=== PATIENT | male | born 1990 | race Caucasian/White ===

== ENCOUNTER 2017-01-16 11:50 | Emergency (ER) | payer SELFPAY ==
[~2017-01-16] VITALS: Ht 177.8 cm; Wt 81.6 kg
[2017-01-16 12:08] VITALS: BP 141/78
--- NOTE | 2017-01-16 12:22 | PHYS DOC ---
Past Medical History Past Medical History: No Pertinent History Past Surgical History: Other Additional Past Surgical Histo: HERNIA Alcohol Use: Occasionally Drug Use: None Adult General Chief Complaint Chief Complaint: SKIN RASH/ABSCESS HPI HPI Patient is a 26 year old medical presents with poison rick rash for 4-5 days. Patient states he normally has to come to the ED and get a shot. Review of Systems Review of Systems Constitutional: Denies fever or chills [] Eyes: Denies change in visual acuity, redness, or eye pain [] : Denies dysuria or hematuria [] Musculoskeletal: Denies back pain or joint pain [] Integument: poison rick rash Neurologic: Denies headache, focal weakness or sensory changes [] Endocrine: Denies polyuria or polydipsia [] Current Medications Current Medications Current Medications Medications (Trade) Dose Ordered Sig/Tanner Start Time Stop Time Status Last Admin Dose Admin Dexamethasone Sodium Phosphate (Decadron) 10 mg 1X ONCE 01/16/17 12:45 01/16/17 12:46 Allergies Allergies Allergies Uncoded Allergies Type Severity Reaction Last Updated Verified ANTHONY AID Allergy Unknown 01/16/17 Physical Exam Physical Exam Constitutional: Well developed, well nourished, no acute distress, non-toxic appearance. [] HENT: Normocephalic, atraumatic, bilateral external ears normal, oropharynx moist, no oral exudates, nose normal. [] Skin: Patient has moderate amount of erythematous rash on bilateral upper and lower extremities, moderate amount of papular rash on the abdomen, and moderate amount of erythematous rash on the face. Back: No tenderness, no CVA tenderness. [] Extremities: No tenderness, no cyanosis, no clubbing, ROM intact, no edema. [] Neurologic: Alert and oriented X 3, normal motor function, normal sensory function, no focal deficits noted. [] Psychologic: Affect normal, judgement normal, mood normal. [] Current Patient Data Vital Signs Vital Signs Date Time Temp Pulse Resp B/P (MAP) Pulse Ox O2 Delivery O2 Flow Rate FiO2 01/16/17 12:08 98.2 81 18 99 Room Air 98.2 EKG EKG [] Radiology/Procedures Radiology/Procedures [] Course & Med Decision Making Course & Med Decision Making Pertinent Labs and Imaging studies reviewed. (See chart for details) Patient has widespread contact dermatitis rash from poison rick. He was given Decadron in the ED. He was discharged with tapered dose of prednisone Pepcid and Benadryl. Follow-up with his own doctor in 1-2 weeks. Ananda Disclaimer Ananda Disclaimer This electronic medical record was generated, in whole or in part, using a voice recognition dictation system. Departure Departure Impression: Primary Impression: Contact dermatitis due to poison rick Disposition: HOME, SELF-CARE Condition: STABLE Referrals: NO PCP (PCP) Follow-up with your doctor in 2 weeks Patient Instructions: Contact Dermatitis, [id number] Additional Instructions: You were seen for contact dermatitis rash from poison rick. Follow-up with your doctor in the next 2 weeks. Take the prescribed medicines as ordered. Take Benadryl at night and antihistamine that is nonsedating during the day as well as pepcid until the rash clears out. Scripts Prednisone (PREDNISONE) 10 Mg Tablet 10 MG PO UD for PREDNISONE TAPER, #39 TAB 0 Refills Take 3 tablets by mouth twice a day for 3 days, then take 2 tablets by mouth twice a day for 3 days, then take 1 tablet by mouth twice a day for 3 days, then take 1 tablet by mouth daily x 3 days, then stop. Prov: MIKI PINEDA APRN 01/16/17 MIKI PINEDA APRN Jan 16, 2017 12:22
[2017-01-16] MEDS ORDERED: PRED-220 PO (12:25)
[2017-01-16] MEDS ORDERED: DEXAMETHASONE SOD PHOS 20 MG/5 ML VIAL. IM ONE (12:45)
== END 2017-01-16 12:40 | disposition home or self-care (01) ==
LOC: ER 11:50
DX: L23.7 Allergic contact dermatitis due to plants, except food (principal); Z88.8 Allergy status to other drugs, medicaments and biological substances
CPT/HCPCS: 96372; 99283; J1100

== ENCOUNTER 2017-10-27 11:59 | Emergency (ER) | payer SELFPAY ==
[2017-10-27] MEDS: DEXAMETHASONE SOD PHOS 20 MG/5 ML VIAL. IM (13:41)
== END 2017-10-27 13:50 | disposition home or self-care (01) ==
LOC: ER 13:50
DX: L23.7 Allergic contact dermatitis due to plants, except food (principal); Z91.018 Allergy to other foods
CPT/HCPCS: 96372; 99283; J1100